=== PATIENT | male | born 1980 | race Caucasian/White ===

== ENCOUNTER 2018-05-23 17:54 | Emergency (ER) | payer MEDICAID ==
[~2018-05-23] VITALS: Ht 182.9 cm; Wt 89.4 kg
[2018-05-23 18:01] VITALS: Ht 182.9 cm; Wt 89.4 kg
[2018-05-23 20:15] VITALS: BP 144/87
== END 2018-05-23 20:15 | disposition home or self-care (01) ==
LOC: ED 17:54
DX: J09.X2 Influenza due to identified novel influenza A virus with other respiratory manifestations (principal); J98.01 Acute bronchospasm; G43.909 Migraine, unspecified, not intractable, without status migrainosus; Z90.89 Acquired absence of other organs
CPT/HCPCS: 87804; J2930; J7613; J7644

== ENCOUNTER 2019-07-07 10:36 | Emergency (ER) | payer MEDICAID ==
[~2019-07-07] VITALS: Ht 185.4 cm; Wt 93.0 kg
[2019-07-07 10:43] VITALS: Ht 185.4 cm; Wt 93.0 kg
[2019-07-07 12:44] VITALS: BP 146/80
== END 2019-07-07 12:44 | disposition home or self-care (01) ==
LOC: ED 10:36
DX: J11.1 Influenza due to unidentified influenza virus with other respiratory manifestations (principal); G43.909 Migraine, unspecified, not intractable, without status migrainosus
CPT/HCPCS: 87804